=== PATIENT | female | born 1990 | race Caucasian/White ===

== ENCOUNTER 2021-03-06 17:44 | Emergency (ER) | payer SELFPAY ==
[~2021-03-06] VITALS: Ht 154.9 cm; Wt 52.0 kg
[2021-03-06 17:46] VITALS: BP 115/72
== END 2021-03-06 23:50 | disposition home or self-care (01) ==
LOC: ER 17:44
DX: F10.129 Alcohol abuse with intoxication, unspecified (principal); Y90.0 Blood alcohol level of less than 20 mg/100 ml
CPT/HCPCS: 99283